=== PATIENT | male | born 1970 | race African-American/Black ===

== ENCOUNTER 2020-01-31 22:54 | Emergency (ER) | payer MEDICAID ==
[~2020-01-31] VITALS: Ht 180.3 cm; Wt 117.0 kg
[2020-01-31 22:55] VITALS: BP 170/101
[2020-02-01] MEDS ORDERED: AMOXICILLIN 500 MG CAPSULE PO ONE (00:15)
== END 2020-02-01 01:06 | disposition home or self-care (01) ==
LOC: ER 23:13
DX: J18.9 Pneumonia, unspecified organism (principal); F12.10 Cannabis abuse, uncomplicated; I87.8 Other specified disorders of veins; Z03.818 Encounter for observation for suspected exposure to other biological agents ruled out; Z98.890 Other specified postprocedural states; Z87.828 Personal history of other (healed) physical injury and trauma
CPT/HCPCS: 87635; 99281; 99283

== ENCOUNTER 2020-06-03 00:41 | Emergency (ER) | payer MEDICAID ==
[~2020-06-03] VITALS: Ht 180.3 cm; Wt 116.0 kg
[2020-06-03 01:31] VITALS: BP 137/74
== END 2020-06-03 01:31 | disposition home or self-care (01) ==
LOC: ER 00:41
DX: R05 Cough (principal); R06.00 Dyspnea, unspecified; I10 Essential (primary) hypertension; F12.10 Cannabis abuse, uncomplicated; Z20.822 Contact with and (suspected) exposure to COVID-19; Z98.890 Other specified postprocedural states
CPT/HCPCS: 71045; 93005; 99285; C9803; U0003

== ENCOUNTER 2020-07-02 22:21 | Emergency (ER) | payer MEDICAID ==
[~2020-07-02] VITALS: Ht 180.3 cm; Wt 117.0 kg
[2020-07-03 00:57] LABS: BASOPHILS % 0.5 % (0.0-2.0); EOSINOPHILS % 3.6 % (0.0-5.0); HEMOGLOBIN. 11.9 g/dL (14.0-18.0); LYMPHOCYTES % 25.3 % (20.0-50.0); MEAN CORPUSCULAR HEMOGLOBIN 27.9 pg (28.0-32.0); MEAN CORPUSCULAR VOLUME 84.1 fL (80.0-94.0); MEAN PLATELET VOLUME 8.6 fl (7.4-10.4); MONOCYTES % 7.6 % (2.0-8.0); PLATELET 313 x1000/uL (130-400); RED BLOOD CELL COUNT 4.28 mill/uL (4.7-6.1); RED CELL DISTRIBUTION WIDTH 16.7 % (11.6-14.6)
[2020-07-03 01:00] LABS: CLARITY URINE CLEAR (CLEAR); COLOR URINE YELLOW (YELLOW); KETONES URINE NEGATIVE (NEGATIVE); LEUKOCYTE ESTERASE URINE NEGATIVE (NEGATIVE); NITRITE URINE NEGATIVE (NEGATIVE); OCCULT BLOOD URINE TRACE (NEGATIVE); PH URINE 6.5 (4.5-8.0); PROTEIN URINE TRACE (NEGATIVE); SPECIFIC GRAVITY URINE 1.021 (1.005-1.030)
[2020-07-03 01:03] LABS: CHLORIDE 108 mEq/L (98-107)
[2020-07-03] MEDS ORDERED: DOXY100C2 MT (01:24)
[2020-07-03] MEDS ORDERED: DOXYCYCLINE HYCLATE 100MG CAPSULE PO NR (01:30)
[2020-07-03 01:40] VITALS: BP 133/89
[2020-07-03 02:30] LABS: INR 1.1; PROTHROMBIN TIME 11.5 sec (9.6-11.0)
== END 2020-07-03 01:53 | disposition home or self-care (01) ==
LOC: ER 22:21 → CANBEDREQ 07-03 05:52
DX: N39.0 Urinary tract infection, site not specified (principal); I10 Essential (primary) hypertension; E11.9 Type 2 diabetes mellitus without complications; L97.929 Non-pressure chronic ulcer of unspecified part of left lower leg with unspecified severity; F17.200 Nicotine dependence, unspecified, uncomplicated; Z98.890 Other specified postprocedural states
CPT/HCPCS: 36415; 71045; 80053; 81003; 83605; 84145; 84484; 85025; 99284